=== PATIENT | male | born 1970 | race Caucasian/White ===

== ENCOUNTER 2021-12-28 08:47 | Emergency (ER) | payer BC ==
[2021-12-28 09:51] LABS: #Basophils 0.2 10x3/uL (0.0-0.2); #Eosinphils 1.1 10x3/uL (0.0-0.5); #Monocytes 0.8 10x3/uL (0.0-1.1); #Neutrophils 6.4 10x3/uL (1.5-8.4); %Basophils 2.1 % (0.0-2.0); %Eosinophils 10.2 % (0.0-6.0); %Lymphocytes 17.5 % (18.0-47.0); %Monocytes 7.2 % (0.0-10.0); %Neutrophils 60.6 % (40.0-75.0); Hemoglobin 15.1 g/dL (13.5-17.5); Mean Corpuscular Hemoglobin 28.6 pg (27.0-33.0); Mean Corpuscular Volume 84.1 fl (81.2-95.1); Platelet Count 238 10x3/uL (150-450); RBC Distribution Width 13.7 % (11.5-14.5); Red Blood Cell (RBC) Count 5.28 10x6/uL (4.32-5.72); White Blood Cell (WBC) Count 10.6 10x3/uL (3.5-10.5)
[2021-12-28] MEDS ORDERED: Lorazepam 2 MG/ML VIAL ONE (09:57)
[2021-12-28 10:01] LABS: ALT (SGPT) 30 U/L (8-55); AST (SGOT) 19 U/L (5-34); Albumin 4.2 g/dL (3.5-5.0); Alkaline Phosphatase 68 U/L (40-110); Anion Gap 14 mmol/L (10-20); BUN (Urea Nitrogen) 18 mg/dL (8.4-25.7); Bilirubin, Total 0.5 mg/dL (0.2-1.2); Calc. Creatinine Clearance 0 mL/min (70-130); Calcium 9.3 mg/dL (7.8-10.44); Carbon Dioxide 26 mmol/L (22-29); Chloride 103 mmol/L (98-107); Globulin 2.9 g/dL (2.4-3.5); Glucose 117 mg/dL (70-105); Potassium 4.4 mmol/L (3.5-5.1); Protein, Total 7.1 g/dL (6.0-8.3); Sodium 139 mmol/L (136-145)
== END 2021-12-28 12:32 | disposition home or self-care (01) ==
LOC: CSHERS 08:47
DX: R20.2 Paresthesia of skin (principal); R42 Dizziness and giddiness; R29.700 NIHSS score 0; I10 Essential (primary) hypertension
CPT/HCPCS: 70450; 80053; 84484; 85025; 93005; 96374; J2060

== ENCOUNTER 2022-01-01 13:36 | Observation (INO) | payer BC ==
[2022-01-01 14:44] LABS: #Basophils 0.2 10x3/uL (0.0-0.2); #Eosinphils 0.5 10x3/uL (0.0-0.5); #Monocytes 0.6 10x3/uL (0.0-1.1); #Neutrophils 5.9 10x3/uL (1.5-8.4); %Basophils 1.7 % (0.0-2.0); %Lymphocytes 15.8 % (18.0-47.0); %Monocytes 6.9 % (0.0-10.0); Hemoglobin 15.5 g/dL (13.5-17.5); Mean Corpuscular HGB CONC 33.7 g/dL (32.0-36.0); Mean Corpuscular Hemoglobin 27.9 pg (27.0-33.0); Mean Corpuscular Volume 82.9 fl (81.2-95.1); Mean Platelet Volume 11.5 fl (7.4-10.4); Platelet Count 228 10x3/uL (150-450); RBC Distribution Width 13.9 % (11.5-14.5); Red Blood Cell (RBC) Count 5.55 10x6/uL (4.32-5.72); White Blood Cell (WBC) Count 8.7 10x3/uL (3.5-10.5)
[2022-01-01 14:56] LABS: ALT (SGPT) 27 U/L (8-55); AST (SGOT) 17 U/L (5-34); Albumin 4.4 g/dL (3.5-5.0); Alkaline Phosphatase 68 U/L (40-110); Anion Gap 15 mmol/L (10-20); BUN (Urea Nitrogen) 15 mg/dL (8.4-25.7); Bilirubin, Total 0.9 mg/dL (0.2-1.2); Calc. Creatinine Clearance 0 mL/min (70-130); Calcium 9.2 mg/dL (7.8-10.44); Carbon Dioxide 25 mmol/L (22-29); Chloride 103 mmol/L (98-107); Globulin 2.9 g/dL (2.4-3.5); Glucose 106 mg/dL (70-105); Lipase 25 U/L (8-78); Potassium 4.3 mmol/L (3.5-5.1); Protein, Total 7.3 g/dL (6.0-8.3); Sodium 139 mmol/L (136-145)
[2022-01-01] MEDS ORDERED: Lorazepam 2 MG/ML VIAL ONE (15:39)
[2022-01-01] MEDS ORDERED: Ondansetron PF 4 MG/2 ML Vial IVP PRN (17:28)
[2022-01-01] MEDS ORDERED: Senokot S 8.6-50 MG TAB PO PRN (17:28)
[2022-01-01] MEDS ORDERED: Acetaminophen 325 MG TAB PO PRN (17:28)
[2022-01-01] MEDS ORDERED: Ondansetron ODT 4 MG TAB PO PRN (17:28)
[2022-01-01] MEDS ORDERED: Nitroglycerin 0.4 MG TAB (25 Tab Bottle) SL PRN (17:29)
[2022-01-01] MEDS ORDERED: Aspirin Chewable 81 MG TAB ONE (17:55)
[2022-01-01 18:59] LABS: Magnesium 2.2 mg/dL (1.6-2.6)
[2022-01-01 19:53] VITALS: BMI 37.2
[2022-01-01 20:03] LABS: Troponin I Less than 0.010 ng/mL (< 0.028)
[2022-01-01] MEDS: Tamsulosin HCl 0.4 MG CAP PO SCH (20:50)
[2022-01-01 22:10] LABS: SARS-CoV-2 NAA Rapid Test Not Detected (NotDetected)
[2022-01-01 23:08] LABS: Troponin I Less than 0.010 ng/mL (< 0.028)
[2022-01-01] MEDS: Calcium Carbonate 500 MG ChewTAB PO PRN (23:41)
[2022-01-02 05:01] LABS: #Basophils 0.2 10x3/uL (0.0-0.2); #Neutrophils 6.3 10x3/uL (1.5-8.4); %Basophils 1.8 % (0.0-2.0); %Eosinophils 8.7 % (0.0-6.0); %Lymphocytes 24.2 % (18.0-47.0); %Monocytes 8.8 % (0.0-10.0); %Neutrophils 55.4 % (40.0-75.0); Mean Corpuscular Hemoglobin 28.3 pg (27.0-33.0); Mean Corpuscular Volume 83.2 fl (81.2-95.1); Mean Platelet Volume 12.1 fl (7.4-10.4); Platelet Count 220 10x3/uL (150-450); RBC Distribution Width 14.2 % (11.5-14.5); White Blood Cell (WBC) Count 11.4 10x3/uL (3.5-10.5)
[2022-01-02 05:12] LABS: Anion Gap 15 mmol/L (10-20); BUN (Urea Nitrogen) 16 mg/dL (8.4-25.7); Calc. Creatinine Clearance 121 mL/min (70-130); Calcium 9.5 mg/dL (7.8-10.44); Carbon Dioxide 24 mmol/L (22-29); Chloride 104 mmol/L (98-107); Cholesterol 144 mg/dl (< 200 Desired); Glucose 97 mg/dL (70-105); HDL Cholesterol 36 mg/dL (>60 Neg Risk); LDL Cholesterol, Calculated 94 mg/dL; Potassium 4.2 mmol/L (3.5-5.1); Sodium 139 mmol/L (136-145); Triglycerides 71 mg/dL (Less than 150)
[2022-01-02] MEDS: Tamsulosin HCl 0.4 MG CAP PO SCH (08:36)
[2022-01-02] MEDS: Calcium Carbonate 500 MG ChewTAB PO PRN (08:44)
[2022-01-02] MEDS ORDERED: Lorazepam 0.5 MG TAB PO PRN (08:49)
[2022-01-02] MEDS ORDERED: Aspirin 81 mg Enteric Coated Tablet PO SCH (09:00)
[2022-01-02 17:37] VITALS: BP 132/88; TEMP 98.3
== END 2022-01-02 19:00 | disposition home or self-care (01) ==
LOC: CSHERS 13:36 → CSHTELE 18:37
PROVIDERS: ADMIT Hospitalist; ATTEND Internal Medicine
DX: R07.89 Other chest pain (principal); N40.0 Benign prostatic hyperplasia without lower urinary tract symptoms; I10 Essential (primary) hypertension; K21.9 Gastro-esophageal reflux disease without esophagitis; Z20.822 Contact with and (suspected) exposure to COVID-19; Z79.82 Long term (current) use of aspirin; Z79.899 Other long term (current) drug therapy
CPT/HCPCS: 36415; 71045; 80048; 80053; 80061; 83690; 83735; 84484; 85025; 85379; 93005; 93306; 94760; 96374; G0378; J2060; U0002